=== PATIENT | female | born 2000 | race Caucasian/White ===

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

== ENCOUNTER 2020-02-19 19:26 | Emergency (ER) | payer BC, SELFPAY ==
--- NOTE | 2020-02-19 19:31 | ED.FEMALEGU ---
HPI - Female Genitourinary General Chief complaint: Urogenital-Female Stated complaint: uti Time Seen by Provider: 02/19/20 19:32 Source: patient and RN notes reviewed History of Present Illness HPI Narrative: Patient is a 19-year-old female who presents the urgent care with complaints of a possible UTI. Patient states that she was treated January 19 at another facility and was given ciprofloxacin for 1 week. Patient states that she never got a call and is unaware of the culture the urine. States that her symptoms returned this evening with vaginal irritation, clear vaginal discharge and lower abdominal pains. Patient denies of any nausea, vomiting, fever. Denies of any blood in the urine. No other acute complaints. Denies of any use of [id number] medication for pain or discomfort. No acute distress noted. Patient aware of the plan of care. Some parts of this dictation were generated by voice recognition software and may contain typographical and/or grammatical inaccuracies. Related Data Home Medications Medication Instructions Recorded Confirmed levonorgestrel [Jodee] 1 device INTRAUTERINE ONCE 02/19/20 02/19/20 Allergies Allergy/AdvReac Type Severity Reaction Status Date / Time No Known Allergies Allergy Verified 02/19/20 19:35 Review of Systems Review of Systems: Narrative: CONSTITUTIONAL: Denies fever, chills, or sweats. EYES: Denies visual changes, redness, or discharge. ENT: Denies rhinorrhea, congestion, sore throat, or otalgia. CARDIOVASCULAR: Denies chest pain, palpitations, or edema. RESPIRATORY: Denies cough or dyspnea. GASTROINTESTINAL: Denies abdominal pain, nausea, vomiting, or diarrhea. GENITOURINARY: Reports of vaginal irritation, clear vaginal discharge and suprapubic pressures SKIN: Denies rash or itching. MUSCULOSKELETAL: Denies back pain, joint pain, or myalgia. NEUROLOGIC: Denies headache, numbness, or weakness. All other systems reviewed are negative, except as documented in HPI. [facility] Family History Family History Grandparent Diabetes mellitus Social History Social History Smoking status: Never smoker Second hand tobacco smoke exposure: No Alcohol intake: current Drinks per week: 5 Substance use: current Substance use type: marijuana Gender identity (if verbalized by the patient): Female Comments At the time of my signature, I reviewed and agree with the nursing past medical, surgical, social, and family history. There is no relevant family history pertinent to the patient complaint. Exam Narrative: Exam Narrative: GENERAL: This is a well-nourished, well-developed patient, in no apparent distress. HEAD: normocephalic, atraumatic. EYES: PERRL. Sclera clear/white. Vision is grossly intact. EARS: External ears normal NOSE: External nose normal with no obvious nasal discharge, nares without redness, no rhinorrhea. THROAT: Mucous membranes moist, posterior pharynx clear. NECK: Neck supple GASTROINTESTINAL: Abdomen soft, non-tender, nondistended. Bowel sounds are active. SKIN: warm, intact with no suspicious lesions or rash, good texture and turgor. NEURO: awake, alert, and oriented to person, place and time. There were no obvious focal neurologic abnormalities. EXTREMITIES: No clubbing, cyanosis, or edema. BACK: Negative bilateral CVA tenderness Course Vital Signs Vital signs: Vital Signs Temperature 98.7 F 02/19/20 19:34 Pulse Rate 75 02/19/20 19:34 Respiratory Rate 20 02/19/20 19:34 Blood Pressure 110/61 02/19/20 19:34 Pulse Oximetry 100 02/19/20 19:34 Temperature 98.7 F 02/19/20 19:34 Pulse Rate 75 02/19/20 19:34 Respiratory Rate 20 02/19/20 19:34 Blood Pressure 110/61 02/19/20 19:34 Pulse Oximetry 100 02/19/20 19:34 Reviewed MDM - Female Genitourinary MDM Narrative Medical decision making narrative:
[2020-02-19 19:34] VITALS: BP 110/61; PULSE 75; RESP 20; TEMP 37.1; O2SAT 100
== END 2020-02-19 19:53 | disposition home or self-care (01) ==
PROVIDERS: Emergency Provider Nurse Practitioner Family; PCP Physician Assistant Medical
DX: N39.0 Urinary tract infection, site not specified (principal)
CPT/HCPCS: 81003; 87086; 99213; G0463

== ENCOUNTER 2022-03-18 12:25 | Emergency (ER) | payer BC, SELFPAY ==
[2022-03-18 12:55] VITALS: BP 103/78; PULSE 68; RESP 16; TEMP 36.4; O2SAT 100
--- NOTE | 2022-03-18 13:15 | ED.FEMALEGU ---
HPI - Female Genitourinary General Chief complaint: Urogenital-Female Stated complaint: uti complaint Time Seen by Provider: 03/18/22 13:15 Source: patient Mode of arrival: ambulatory Limitations: no limitations History of Present Illness HPI Narrative: 21-year-old female presents with complaint of dysuria for 3 days. Is concerned she may have UTI but also wants checked for STIs. Reports recent unprotected sex with a new partner. Denies nausea vomiting diarrhea. No abdominal or back pain. Afebrile. All systems reviewed and negative except as noted above. Related Data Home Medications Medication Instructions Recorded Confirmed levonorgestrel 14 mcg/24 hrs (3 1 device intrauterine ONCE 02/19/20 03/18/22 yrs) 13.5 mg intrauterine device (Jodee) Allergies Allergy/AdvReac Type Severity Reaction Status Date / Time No Known Allergies Allergy Verified 03/18/22 12:54 Review of Systems Review of Systems: CONSTITUTIONAL: Denies fever, chills, or sweats. EYES: Denies visual changes, redness, or discharge. ENT: Denies rhinorrhea, congestion, sore throat, or otalgia. CARDIOVASCULAR: Denies chest pain, palpitations, or edema. RESPIRATORY: Denies cough or dyspnea. GASTROINTESTINAL: Denies abdominal pain, nausea, vomiting, or diarrhea. GENITOURINARY: reports dysuria. SKIN: Denies rash or itching. MUSCULOSKELETAL: Denies back pain, joint pain, or myalgia. NEUROLOGIC: Denies headache, numbness, or weakness. PSYCHIATRIC: Denies anxiety or depression. All other systems reviewed are negative, except as documented in HPI. [facility] Family History Family History Grandparent Diabetes mellitus Social History Social History Smoking status: Never smoker Second hand tobacco smoke exposure: No Alcohol intake: current Drinks per week: 5 Substance use: current Substance use type: marijuana Gender identity (if verbalized by the patient): Female Comments At time of signature, agree with nursing past medical, surgical, social and family history. There is no relevant family history pertinent to the presenting complaint. Exam Narrative: GENERAL: This is a well-nourished, well-developed patient, in no apparent distress. HEAD: normocephalic, atraumatic. EYES: PERRL. Sclera clear/white. Vision is grossly intact. EARS: External ears normal NOSE: External nose normal NECK: Neck supple, non-tender without lymphadenopathy, masses or thyromegaly. CARDIOVASCULAR: Regular rate and rhythm without murmurs, gallops, or rubs. RESPIRATORY: Clear to auscultation. Breath sounds equal bilaterally. No wheezes, rales, or rhonchi. SKIN: warm, Dry, intact with no suspicious lesions or rash, good texture and turgor. NEURO: awake, alert, and oriented to person, place and time. There were no obvious focal neurologic abnormalities. EXTREMITIES: No joint tenderness, effusion, or edema noted. Course Course Level of Care: Express Care Visit Vital Signs Vital signs: Vital Signs Temperature 36.4 C L 03/18/22 12:55 Pulse Rate 68 03/18/22 12:55 Respiratory Rate 16 03/18/22 12:55 Blood Pressure 103/78 03/18/22 12:55 Pulse Oximetry 100 03/18/22 12:55 Oxygen Delivery Room Air 03/18/22 12:55 Temperature 36.4 C L 03/18/22 12:55 Pulse Rate 68 03/18/22 12:55 Respiratory Rate 16 03/18/22 12:55 Blood Pressure 103/78 03/18/22 12:55 Pulse Oximetry 100 03/18/22 12:55 Oxygen Delivery Room Air 03/18/22 12:55 Reviewed MDM - Female Genitourinary MDM Narrative Medical decision making narrative: Patient is aware of diagnosis, understands and agrees to treatment plan. Anticipatory guidance given. Patient agrees to follow-up as directed and is aware of reasons to seek care at the emergency department. Portions of this record may have been created with voice recognition software [email or web address]
== END 2022-03-18 13:25 | disposition home or self-care (01) ==
PROVIDERS: Emergency Provider Nurse Practitioner Family; PCP Internal Medicine
DX: N39.0 Urinary tract infection, site not specified (principal); Z20.2 Contact with and (suspected) exposure to infections with a predominantly sexual mode of transmission; F12.90 Cannabis use, unspecified, uncomplicated
CPT/HCPCS: 81003; 87086; 87088; 87491; 87591; 87661; 99213; G0463

== ENCOUNTER 2022-09-08 14:11 | Outpatient (CLI) | payer BC, SELFPAY ==
[2022-09-08 15:35] LABS: HIV 1/2 Ab P24 Ag Result Negative (Negative)
[2022-09-08 16:07] LABS: Hepatitis B Surface Antigen Negative (Negative)
[2022-09-08 16:24] LABS: Hepatitis C Virus Antibody Negative (Negative)
[2022-09-10 14:00] LABS: Rapid Plasma Reagin Non-Reactive (NonReactive)
== END 2022-09-08 14:12 | disposition home or self-care (01) ==
LOC: ANHLAB 14:13
PROVIDERS: PCP Internal Medicine; Visit Provider Obstetrics & Gynecology
DX: Z20.2 Contact with and (suspected) exposure to infections with a predominantly sexual mode of transmission (principal)
CPT/HCPCS: 36415; 86592; 86703; 86803; 87340; G0432